=== PATIENT | female | born 1985 | race Caucasian/White ===

== ENCOUNTER 2020-01-03 14:39 | Outpatient (CLI) | payer SELFPAY ==
--- NOTE | 2020-01-09 17:00 | MRI Report ---
PROCEDURE: Lumbar Spine W/O INDICATIONS: LOW BACK PAIN TECHNIQUE: Noncontrast sagittal T1 spin echo and T2 fast echo, sagittal STIR, axial T1 and T2 fast spin echo thr ough the lumbar spine. In cases with scoliosis, additional coronal T2 fast spin echo may be performe d. COMPARISON: None. FINDINGS: Image quality: Excellent. Alignment and Curvature: There is normal bony alignment. Bone Marrow: Marrow is of normal overall signal. No acute vertebral body compression fractures. Spinal Cord: Conus medullaris terminates at the L1 level. Visualized cord demonstrates normal signa l and size. Paraspinous Soft Tissues: No paravertebral masses. Discs: Mild to moderate desiccation is present at L5-S1. T12-L1: No disc bulge, spinal stenosis or foraminal narrowing. L1-L2: No disc bulge, spinal stenosis or foraminal narrowing. L2-L3: No disc bulge, spinal stenosis or foraminal narrowing. L3-L4: No disc bulge, spinal stenosis or foraminal narrowing. L4-L5: Minimal disc bulge without spinal stenosis or foraminal narrowing. L5-S1: Minimal disc bulge without spinal stenosis or foraminal narrowing. IMPRESSION: 1. Minimal disc bulges as above. No spinal stenosis or foraminal narrowing. Reviewed by: Deepthi Cagle MD on 01/09/2020 4:59 PM PDT Approved by: Deepthi Cagle MD on 01/09/2020 4:59 PM PDT Station ID: [id number]
== END 2020-01-03 14:40 | disposition home or self-care (01) ==
LOC: DI 14:39
PROVIDERS: ATTEND Physician Assistant
DX: M51.37 Other intervertebral disc degeneration, lumbosacral region (principal)
CPT/HCPCS: 72148

== ENCOUNTER 2020-06-04 18:33 | Outpatient (CLI) | payer OTHER | END 2020-06-04 18:34 | disposition home or self-care (01) | LOC: COV 18:33 | PROVIDERS: ATTEND Family Medicine | DX: U07.1 COVID-19 (principal) ==

== ENCOUNTER 2020-07-27 14:41 | Emergency (ER) | payer MEDICAID, OTHER ==
--- NOTE | 2020-07-27 15:12 | ED Physician Documentation ---
PD HPI LOWER EXT INJURY - Stated complaint Stated Complaint: TOE WOUND - Chief complaint Chief Complaint: Trauma Ext - History obtained from History obtained from: Patient - History of Present Illness PD HPI LOW EXT INJURY LOCATION: Right, Toe (great) Type of injury: Other (stubbed toe) Where injury occurred: Home Timing - onset: How many days ago (2) Timing - duration: Days (2) Timing - details: Gradual onset Pain level max: 6 Pain level now: 4 Improved by: Rest Worsened by: Moving, Palpating Associated symptoms: Swelling, Discolored (red). No: Weakness, Numbness, Tingling Contributing factors: No: Anticoagulated Recently seen: Not recently seen - Additional information Additional information: 34-year-old female female states that she stubbed her toe a few days ago causing the nail to bend backwards. Increasing pain over the past day. Review of Systems Constitutional: denies: Fever : denies: Now [facility] PD PAST MEDICAL HISTORY - Past Medical History Past Medical History: No - Past Surgical History Past Surgical History: No - Present Medications Home Medications: Ambulatory Orders Medication Instructions Recorded Confirmed Cephalexin [Keflex] 500 mg PO Q6H #28 capsule 07/27/20 - Allergies Allergies/Adverse Reactions: Allergies Allergy/AdvReac Type Severity Reaction Status Date / Time No Known Drug Allergies Allergy Verified 07/27/20 14:52 - Social History Does the pt smoke?: No Smoking Status: Never smoker Does the pt drink ETOH?: No Does the pt have substance abuse?: No - Immunizations Immunizations are current?: Yes - POLST Patient has POLST: No PD ED PE NORMAL - Vitals Vital signs reviewed: Yes - General General: Alert and oriented X 3, No acute distress - Derm Derm: Warm and dry - Extremities Extremities: Other (Right great toe - Small subungual hematoma. The base of the nail is pulled over the nail fold. It appears to be digging into the skin causing irritation. Neurovascularly intact.) - Neuro Neuro: Alert and oriented X 3 - Psych Psych: Normal mood, Normal affect Results - Vitals Vitals: Vital Signs - 24 hr 07/27/20 07/27/20 14:52 16:20 Temperature 37 C Heart Rate 78 69 Respiratory 16 17 Rate Blood Pressure 103/55 L 114/73 O2 Saturation 99 100 Oxygen O2 Source Room air - Rads (name of study) Right great toe x-ray Radiology: Prelim report reviewed, EMP read contemporaneously, See rad report (No acute abnormality) PD MEDICAL DECISION MAKING - ED course Complexity details: reviewed results, re-evaluated patient, considered differential, d/w patient ED course: 34-year-old female with a toe injury. The nail have been partially avulsed and to the nail matrix have been folded up over the nail fold. 2% lidocaine was used to anesthetize the area, the nail was pulled back and reinserted under the nail fold. A small trephination was made to drain the small subungual hematoma as well. Patient tolerated well. Neurovascularly intact. Dressing applied. There does appear to be irritation/infection, will place on Keflex. Patient co unseled regarding signs and symptoms for which I believe and urgent re- evaluation would be necessary. Patient with good understanding of and agreement to plan and is comfortable going home at this time This document was made in part using voice recognition software. While efforts are made to proofread this document, sound alike and grammatical errors may occur. td Up-to-date Departure - Departure Disposition: 01 Home, Self Care Clinical Impression: Toenail avulsion Qualifiers: Encounter type: initial encounter Qualified Code(s): S91.209A - Unspecified open wound of unspecified toe(s) with damage to nail, initial encounter Condition: Good Instructions: ED Toenail Ingrown Infec Abx Onl, ED Avulsion Nail Complete Follow-Up: your,doctor as needed [Other] Prescriptions: Cephalexin [Keflex] 500 mg PO Q6H #28 capsule Comments: Keep the wound clean. Return if you worsen. Follow-up with your doctor as needed for further care. You can also soak the area 2-3 times a day in warm water. This will help to keep the nail soft. Take all antibiotics until gone Discharge Date/Time: 07/27/20 16:20
--- NOTE | 2020-07-27 15:35 | XRAY Report ---
PROCEDURE: Toe(s) RT INDICATIONS: injury TECHNIQUE: 3 views of the right toe(s) acquired. COMPARISON: None FINDINGS: Bones: No fractures or dislocations. No suspicious bony lesions. Incidental note is made of an acc essory ossicle, an os peroneum. Soft tissues: No suspicious soft tissue densities. IMPRESSION: Negative for fracture. Reviewed by: Maurilio Mejia MD on 07/27/2020 2:34 PM AKST Approved by: Maurilio Mejia MD on 07/27/2020 2:34 PM AKST Station ID: [id number]
[2020-07-27] MEDS ORDERED: LIDOCAINE 2%-EPI 1:100000 20 ML MDV SUBQ STA (15:52)
[2020-07-27 16:23] VITALS: BP 114/73
== END 2020-07-27 16:20 | disposition home or self-care (01) ==
LOC: ED 14:41
DX: S91.201A Unspecified open wound of right great toe with damage to nail, initial encounter (principal); W22.8XXA Striking against or struck by other objects, initial encounter; Y92.009 Unspecified place in unspecified non-institutional (private) residence as the place of occurrence of the external cause
CPT/HCPCS: 11740; 99283; 99284

== ENCOUNTER 2020-07-28 17:42 | Emergency (ER) | payer MEDICAID ==
[2020-07-28 17:55] VITALS: BP 122/62
[2020-07-28] MEDS ORDERED: BUFFERED LIDOCAINE 10 ML SYRINGE SUBQ STA (17:58)
--- NOTE | 2020-07-28 17:59 | ED Physician Documentation ---
PD HPI LOWER EXT INJURY - Stated complaint Stated Complaint: RT TOE PX - Chief complaint Chief Complaint: Ext Problem - History obtained from History obtained from: Patient - Additional information Additional information: She was seen yesterday after a blunt force injury to the right great toe. The proximal nailbed had dorsally displaced of the great toenail on the medial side and a digital block was done and the nailbed was replaced. Subsequent to that an x-ray was normal. Today she has more redness and swelling on that side of the nail. No fevers. Review of Systems Constitutional: reports: Reviewed and negative Eyes: reports: Reviewed and negative Ears: reports: Reviewed and negative Nose: reports: Reviewed and negative PD PAST MEDICAL HISTORY - Past Surgical History Past Surgical History: No - Present Medications Home Medications: Ambulatory Orders Medication Instructions Recorded Confirmed Cephalexin [Keflex] 500 mg PO Q6H #28 capsule 07/27/20 07/28/20 - Allergies Allergies/Adverse Reactions: Allergies Allergy/AdvReac Type Severity Reaction Status Date / Time No Known Drug Allergies Allergy Verified 07/28/20 17:55 - Social History Does the pt smoke?: No Smoking Status: Never smoker Does the pt drink ETOH?: No Does the pt have substance abuse?: No - Immunizations Immunizations are current?: Yes - POLST Patient has POLST: No PD ED PE NORMAL - Vitals Vital signs reviewed: Yes - General General: Alert and oriented X 3, No acute distress - Extremities Extremities: Other (At this point it really looks like an ingrown toenail with redness and swelling along the medial side of the great toe and a little bit proximally. No subungual hematoma remaining.) - Neuro Neuro: Alert and oriented X 3, Normal speech Results - Vitals Vitals: Vital Signs - 24 hr 07/28/20 17:52 Temperature 36.9 C Heart Rate 79 Respiratory 16 Rate Blood Pressure 122/62 O2 Saturation 100 Oxygen O2 Source Room air Procedures - General procedure General procedure: In order to create a portal for drainage the right great toe was anesthetized with a digital block with buffered lidocaine in standard fashion. Then I shaved the lateral fifth off the nail down to the nailbed and a pocket of purulence was found under there. A culture was sent. A dressing was placed. She tolerated very well. Departure - Departure Disposition: 01 Home, Self Care Clinical Impression: Infection of toenail Condition: Good Record reviewed to determine appropriate education?: Yes Instructions: ED Ingrown Toenail Excised Comments: We are performing a wound culture, the results should be done in 48-72 hours. If antibiotic change is necessary we will call you. Return if worse in the meantime, especially if you develop increased pain, fevers, cannot keep down the medication. Otherwise follow-up with your physician in approximately 2-3 days.
== END 2020-07-28 18:28 | disposition home or self-care (01) ==
LOC: ED 17:42
DX: L03.031 Cellulitis of right toe (principal)
CPT/HCPCS: 11765; 87070; 87077; 87181; 87205; 99282; 99283

== ENCOUNTER 2021-07-15 17:24 | Outpatient (CLI) | payer MEDICAID ==
--- NOTE | 2021-07-16 11:42 | XRAY Report ---
PROCEDURE: Lumbar Spine 2 View INDICATIONS: Persistent low back pain TECHNIQUE: 2 views of the lumbar spine were acquired. COMPARISON: 01/03/2020 MRI lumbar spine FINDINGS: Minimal loss of disc height from L2-L3 through L5-S1 with trace degenerative endplate changes and mil d facet hypertrophy. Normal alignment. No listhesis. Vertebral body heights are maintained. No suspic ious lytic or blastic osseous lesion. IMPRESSION: Mild degenerative changes in the lower lumbar spine. Reviewed by: Adonis Virk MD on 07/16/2021 11:41 AM PST Approved by: Adonis Virk MD on 07/16/2021 11:41 AM PST Station ID: [id number]
== END 2021-07-15 17:25 | disposition home or self-care (01) ==
LOC: DI 17:24
PROVIDERS: ATTEND Internal Medicine
DX: M47.816 Spondylosis without myelopathy or radiculopathy, lumbar region (principal); M47.817 Spondylosis without myelopathy or radiculopathy, lumbosacral region

== ENCOUNTER 2021-11-20 08:54 | Emergency (ER) | payer MEDICAID ==
--- NOTE | 2021-11-20 09:33 | ED Physician Documentation ---
History of Present Illness - Stated complaint Stated Complaint: L SIDE PAIN - Chief complaint Chief Complaint: Abd Pain - History obtained from History obtained from: Patient - Additonal information Additional information: The patient comes to the emergency department chief complaint of left low back and flank pain that has been going on intermittently for the last 8 months. Patient states that it is getting worse. She denies any vomiting but has intermittent nausea. She is also had some gurgling in her stomach. She has not had any dysuria or gross hematuria. The patient denies any injury either recently or prior to the initial onset of the symptoms 8 months ago. She has seen her primary care physician a couple of times for this and has had urinary test done which have been negative. She states her doctors tried to refer her for MRI, but the insurance company has denied authorization, stating she needs to do physical therapy first. 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 The patient denies any unexplained or unexpected weight loss. No fevers or chills. No abdominal pain. No shortness of breath or other respiratory symptoms. No change in bowel habits. She states she is otherwise healthy, tries to eat well, and exercises regularly, though the pain sometimes keeps her from exercising. She states the pain is present every night and can be anywhere from a 6 out of 10 to a 10 out of 10. She states it hurts to lay on it and when she pushes on the area it hurts. She states that throughout the day, and improves and that she sometimes does not notice it at all during the day. She has been trying to use ice and heat for it, but has not taken any medication because she does not like to take medication. The patient states that her doctor has not spoken with her about getting a scope or any other testing. She sees Dr. Virgen for primary care. The patient states she is about to move to [place] for a travel job and she wants to get checked out for peace of mind because she feels that her outpatient work-up has not been going anywhere. No other complaints at this time. Review of Systems Ten Systems: 10 systems reviewed and negative Constitutional: reports: Reviewed and negative Eyes: reports: Reviewed and negative Ears: reports: Reviewed and negative Nose: reports: Reviewed and negative Throat: reports: Reviewed and negative Cardiac: reports: Reviewed and negative Respiratory: reports: Reviewed and negative GI: reports: Reviewed and negative : reports: Reviewed and negative Skin: reports: Reviewed and negative Musculoskeletal: reports: Back pain Neurologic: reports: Reviewed and negative Psychiatric: reports: Reviewed and negative Endocrine: reports: Reviewed and negative Immunocompromised: reports: Reviewed and negative PD PAST MEDICAL HISTORY - Past Surgical History Past Surgical History: No - Present Medications Home Medications: Ambulatory Orders Medication Instructions Recorded Confirmed No Known Home Medications 11/20/21 11/20/21 - Allergies Allergies/Adverse Reactions: Allergies Allergy/AdvReac Type Severity Reaction Status Date / Time No Known Drug Allergies Allergy Verified 11/20/21 09:01 - Social History Does the pt smoke?: No Smoking Status: Never smoker Does the pt drink ETOH?: No Does the pt have substance abuse?: No - Immunizations Immunizations are current?: Yes - POLST Patient has POLST: No PD ED PE NORMAL - Vitals Vital signs reviewed: Yes - General General: Alert and oriented X 3, No acute distress, Well developed/nourished - HEENT HEENT: Atraumatic, PERRL, EOMI, Moist mucous membranes - Neck Neck: Supple, no meningeal sign, No bony TTP - Cardiac Cardiac: RRR, No murmur, Strong equal pulses - Respiratory Respiratory: No respiratory distress, Clear bilaterally - Abdomen Abdomen: Soft, Non tender, Non distended - Back Back: No spinal TTP, Other (Mild tenderness to palpation left lower back and CVA, extending into flank.) - Derm Derm: Normal color, Warm and dry, No rash - Extremities Extremities: No deformity, No edema - Neuro Neuro: Alert and oriented X 3 - Psych Psych: Normal mood, Normal affect Results - Vitals Vitals: Vital Signs - 24 hr 11/20/21 11/20/21 08:56 10:05 Temperature 37.2 C Heart Rate 93 80 Respiratory 18 14 Rate Blood Pressure 120/75 114/78 O2 Saturation 100 99 Oxygen O2 Source Room air - Rads (name of study) CT abdomen and pelvis no contrast Radiology: Final report received, EMP read indepedently, See rad report (No acute findings) PD MEDICAL DECISION MAKING - ED course Complexity details: reviewed results, re-evaluated patient, considered differential, d/w patient ED course: I discussed with the patient that there is no indication at this point in time for emergent MRI. We have discussed CT scan which can give us fairly good views of the bones as well as the organs and soft tissues abdomen pelvis to see if there is anything concerning. This was done and negative. I have advised the patient to establish primary care when she moves to her new location and to discuss whether MRI is appropriate. We have discussed the usual indications for return. Departure - Departure Disposition: 01 Home, Self Care Clinical Impression: Flank pain Low back pain Qualifiers: Chronicity: chronic Back pain laterality: left Sciatica presence: without sci atica Qualified Code(s): M54.50 - Low back pain, unspecified Condition: Stable Instructions: ED Neck Back Pain General Comments: Your CT scan is completely negative for any acute findings relating to your back pain. Some stool was noted in your colon which is unlikely to explain the ongoing back pain. You also had a prominent pelvic vein which also is unlikely to have any relation to the symptoms you are experiencing. The next best test to evaluate your ongoing symptoms would be MRI. Please consider seeing a new primary doctor when you move to your new location in [place] and see if they can get you approved and scheduled for this. Discharge Date/Time: 11/20/21 10:05
--- NOTE | 2021-11-20 09:51 | CT Report ---
PROCEDURE: Abdomen/Pelvis WO INDICATIONS: L flank pain TECHNIQUE: Noncontrast 5 mm thick sections acquired from the diaphragms to the symphysis. 5 mm coronal and sagi ttal reformats were then performed. For radiation dose reduction, the following was used: automated exposure control, adjustment of mA and/or kV according to patient size. COMPARISON: None. FINDINGS: Image quality: Excellent. ABDOMEN: Lung bases: Lung bases are clear. Heart size is normal. Solid organs: Liver and spleen are normal in size. Gallbladder wall does not appear thickened. P ancreas is normal in contours. No adrenal nodules. Kidneys are normal in size, without hydronephros is or nephrolithiasis. Peritoneum and bowel: Unenhanced bowel loops demonstrate normal wall thickness and caliber. No free fluid or air. There is a moderate amount of stool seen within the colon. A normal appendix is incid entally noted. Nodes and vessels: No retroperitoneal or mesenteric adenopathy by size criteria. Aorta and inferior vena cava are normal in caliber. A prominent, tortuous left canal vein can be seen. Miscellaneous: No ventral hernias. PELVIS: Genitourinary: Bladder wall thickness is normal. Miscellaneous: No inguinal hernias or adenopathy. Note is made of pelvic phleboliths. Bones: No suspicious bony lesions. No vertebral body compression fractures. IMPRESSION: Negative for stones or obstructive uropathy. Prominent, tortuous left gonadal vein noted. There is a moderate amount of stool seen within the colon. Please correlate with clinical constipatio n. Reviewed by: Maurilio Mejia MD on 11/20/2021 8:49 AM SE Approved by: Maurilio Mejia MD on 11/20/2021 8:49 AM SE Station ID: [id number]
[2021-11-20 10:05] VITALS: BP 114/78
== END 2021-11-20 10:05 | disposition home or self-care (01) ==
LOC: ED 08:54
DX: M54.50 Low back pain, unspecified (principal); R10.9 Unspecified abdominal pain
CPT/HCPCS: 99282; 99284

== ENCOUNTER 2022-10-16 15:12 | Emergency (ER) | payer MEDICAID ==
--- NOTE | 2022-10-16 15:59 | ED Physician Documentation ---
PD HPI OPHTHO - Stated complaint Stated Complaint: HEAD PRESSURE/PX - Chief complaint Chief Complaint: Heent - History obtained from History obtained from: Patient - Additional information Additional information: Otherwise healthy 37-year-old woman with no history of eye problems and does not wear contacts or corrective lenses presents with progressive left eye pain and redness starting today. There was no injury. No URI. PD PAST MEDICAL HISTORY - Past Surgical History Past Surgical History: No - Present Medications Home Medications: Ambulatory Orders Medication Instructions Recorded Confirmed Cyclopentolate 1% Ophth Drops 1 drops OPTH TID #1 ea 10/16/22 [Cyclogel 1% Ophth Drops] prednisoLONE 1% OPHTH DROPS [Pred 1 drops OPTH TID #5 ml 10/16/22 Forte 1% Ophth Drops] - Allergies Allergies/Adverse Reactions: Allergies Allergy/AdvReac Type Severity Reaction Status Date / Time No Known Drug Allergies Allergy Verified 10/16/22 15:24 - Social History Does the pt smoke?: No Smoking Status: Never smoker Does the pt drink ETOH?: No Does the pt have substance abuse?: No - Immunizations Immunizations are current?: Yes - POLST Patient has POLST: No PD ED PE NORMAL - Vitals Vital signs reviewed: Yes - General General: Alert and oriented X 3, No acute distress - HEENT HEENT: Other (see mdm text box too small) - Neck Neck: Supple, no meningeal sign, No bony TTP - Neuro Neuro: Alert and oriented X 3, Normal speech Results - Vitals Vitals: Vital Signs - 24 hr 10/16/22 15:18 Temperature 36.5 C Heart Rate 79 Respiratory 15 Rate O2 Saturation 100 Oxygen O2 Source Room air PD Medical Decision Making - ED course ED course: She has anisocoria with a small left pupil that is minimally but not unreactive. Per the nurse she is 20/20 in each eye. Extraocular movements are normal. She has pain with light in the affected eye but also pain when light is shined in the unaffected eye on the affected side. Apollo-Pen on the left is 13. Slit-lamp exam is without cell or flare. She does have perilimbal conjunctivitis. 37-year-old woman presents with an acute iritis to the left eye. I was able to discuss the case with Miguel Aguilar who will see her in follow-up tomorrow. Departure - Departure Disposition: 01 Home, Self Care Clinical Impression: Iritis Condition: Good Record reviewed to determine appropriate education?: Yes Instructions: ED Iritis Follow-Up: Miguel Aguilar MD [Provider Admit Priv/Credential] - Tomorrow Prescriptions: Cyclopentolate 1% Ophth Drops [Cyclogel 1% Ophth Drops] 1 drops OPTH TID #1 ea prednisoLONE 1% OPHTH DROPS [Pred Forte 1% Ophth Drops] 1 drops OPTH TID #5 ml Comments: Call Dr Aguilar's office now as he wants to see you in the morning.
[2022-10-16] MEDS ORDERED: prednisoLONE 1% OPHTH DROPS 75 DROPS/5 ML BOTTLE LEFTEYE STA (16:00)
[2022-10-16] MEDS ORDERED: CYCLOPENTOLATE 1% OPHTH DROPS 2 ML LEFTEYE ONE (16:00)
== END 2022-10-16 16:51 | disposition home or self-care (01) ==
LOC: ED 15:12
DX: H20.9 Unspecified iridocyclitis (principal)
CPT/HCPCS: 99282; 99283; A9270